=== PATIENT | female | born 1990 | race Caucasian/White ===

== ENCOUNTER 2021-03-16 15:27 | Emergency (ER) | payer MEDICAID ==
[~2021-03-16] VITALS: Ht 172.7 cm; Wt 71.7 kg
--- NOTE | 2021-03-16 16:13 | NUR ---
TO ER BED 12, [id number] FROM OUTSIDE CRY HELP C/O BACK PAIN X 4 DAYS. AAOX3, BREATHING EVEN AND NON LABORED, CONNECTED TO MONITOR
[2021-03-16] MEDS ORDERED: KETOROLAC TROMETHAMINE INJ 60 MG/2 ML VIAL IM ONE ×2 (16:30)
[2021-03-16] MEDS ORDERED: DEXAMETHASONE SOD PHOSPHATE 4 MG/ML VIAL IM ONE (16:30)
[2021-03-16] MEDS ORDERED: CARISOPRODOL 350 MG TABLET ONE (16:30)
[2021-03-16] MEDS ORDERED: CARISOPRODOL 350 MG TABLET PO ONE (16:30)
[2021-03-16] MEDS ORDERED: DEXAMETHASONE SOD PHOSPHATE 10 MG/ML VIAL ONE (16:30)
--- NOTE | 2021-03-16 16:59 | NUR ---
urine sample collected and sent to lab
[2021-03-16 17:30] LABS: BILIRUBIN,URINE NEGATIVE (NEGATIVE); COLOR,URINE YELLOW (YELLOW); LEUKOCYTE ESTERASE ,URINE NEGATIVE (NEGATIVE); NITRITE, URINE NEGATIVE (NEGATIVE); PH,URINE 7.5 (5.0-8.0); PROTEIN,URINE TRACE mg/dl (NEGATIVE); UGLUCOSE NEGATIVE (NEGATIVE); UROBILINOGEN,URINE 0.2 EU/dL (0.2)
[2021-03-16 17:32] LABS: BACTERIA,URINE RARE /HPF (None Seen); RBC,URINE 0-2 /HPF (0-2); WBC,URINE 0-2 /HPF (0-3)
[2021-03-16] MEDS ORDERED: HYDROMORPHONE 1 MG/1 ML DISP.SYRIN ONE (17:57)
[2021-03-16] MEDS ORDERED: HYDROMORPHONE 1 MG/1 ML DISP.SYRIN IM ONE (18:00)
[2021-03-16] MEDS ORDERED: NALO4SPR NS (18:11)
[2021-03-16] MEDS ORDERED: CYCL5TAB PO (18:11)
[2021-03-16] MEDS ORDERED: NAPR-1164 PO (18:11)
--- NOTE | 2021-03-16 18:45 | NUR ---
Patient discharged to home in stable condition. Written and verbal after care instructions given. Patient verbalizes understanding of instruction. PT ambulatory with a steady gait
[2021-03-16 18:54] VITALS: BP 128/71
== END 2021-03-16 18:45 | disposition home or self-care (01) ==
LOC: ER 15:31
DX: M54.6 Pain in thoracic spine (principal); M54.50 Low back pain, unspecified; F11.23 Opioid dependence with withdrawal; I10 Essential (primary) hypertension; Z79.899 Other long term (current) drug therapy
CPT/HCPCS: 81001; 84703; 96372 ×2; 99284; J1100; J1170; J1885